=== PATIENT | female | born 1945 | race African-American/Black ===

== ENCOUNTER 2020-06-28 17:45 | Observation (INO) ==
[2020-06-28] MEDS ORDERED: ONDANSETRON 4 MG/2 ML VIAL IV STA (18:43)
[2020-06-28] MEDS ORDERED: methylPREDNISolone SOD SUC 125 MG/2 ML VIAL IV STA (18:43)
[2020-06-28] MEDS ORDERED: ALBUTEROL NEB SOLN 5 MG/ML 20 ML/BOTTLE CONT NEB SCH (19:00)
[2020-06-28 19:02] LABS: Alanine Aminotransferase 9 U/L (13-56); Albumin 3.6 G/DL (3.4-5.0); Alkaline Phosphatase 64 U/L (45-117); Aspartate Amino Transferase 15 U/L (0-37); Bilirubin,Total < 0.39 MG/DL (0.2-1.0); Blood Urea Nitrogen 16 MG/DL (7-18); Calcium 8.8 MG/DL (8.5-10.1); Carbon Dioxide 33 MMOL/L (21-32); Estimated Glom Filtration Rate 71 ML/MIN; Glucose 94 MG/DL (74-106); Osmolality,Calculated 277.5 MOS/KG (273-304); Potassium 3.6 MMOL/L (3.5-5.1); Sodium 139 MMOL/L (136-145); Total Protein 7.1 G/DL (6.4-8.2)
[2020-06-28 19:22] LABS: Bilirubin,Urine Negative (Negative); Blood, Urine Negative (Negative); Glucose,Urine (UA) Negative (Negative); Ketones,Urine Negative (Negative); Mucus,Urine Occasional /LPF (Occasional); Nitrite,Urine Negative (Negative); Protein,Urine 30 MG/DL; RBC,Urine 1 /HPF (0-4); Squamous Epithelial Cell,Urine Occasional /HPF (0-10); Urine Appearance CLEAR (Clear); Urine Color Yellow (Yellow); Urine Specific Gravity 1.012 (1.001-1.035); Urine Urobilinogen < 2.0 EU/DL (0.2-1.0); WBC,Urine 1 /HPF (0-6)
[2020-06-28 19:27] LABS: PT Patient Result 10.3 SECS (9.8-11.9)
[2020-06-28 19:28] LABS: Basophils % 0.3 % (0.0-0.8); Eosinophils # 0.1 10*3/uL (0.0-0.87); Eosinophils % 1.3 % (0.00-10.9); Hemoglobin 9.9 GM/DL (12.0-16.0); Immature Granulocytes % 0.5 %; Immature Granulocytes Absolute 0.04 #; Lymphocytes # 2.5 10*3/uL (1.4-4.0); Lymphocytes % 32.6 % (21.3-54.2); Mean Corpuscular HGB Conc 29.1 GM/DL (32-36); Mean Corpuscular Volume 84.6 FL (87-102); Mean Platelet Volume 9.6 FL (9.6-12.0); Monocytes % 6.6 % (1.7-12.7); NRBC # 0.02 10*3/uL; Neutrophils % 58.7 % (38.7-73.9); Platelet Count 352 T/CUMM (130-400); Red Blood Count 4.02 MC/CUMM (3.8-5.5); White Blood Count 7.7 T/CUMM (4-12)
[2020-06-28] MEDS ORDERED: hydrALAZINE 20 MG/1 ML VIAL ONE (19:37)
[2020-06-28] MEDS ORDERED: ENOXAPARIN 100 MG/ML SYRINGE SUBCUT STA (21:06)
[2020-06-28] MEDS ORDERED: ASPIRIN EC 325 MG TABLET PO STA (21:06)
[2020-06-28] MEDS ORDERED: NITROGLYCERIN 2% OINT 1 INCH/GM PACK TOP STA (21:06)
[2020-06-28] MEDS ORDERED: NON-FORMULARY MEDICATION (Albuterol Sulfate [Ventolin Hfa] 90 MCG/PUFF HFA aerosol inhaler INH PRN (21:54)
[2020-06-28] MEDS ORDERED: ALBUTEROL/IPRATROPIUM 3 ML NEB RESP TX PRN (22:54)
[2020-06-28] MEDS ORDERED: DEXTROSE 50% 25 GM/50 ML VIAL IV PRN (23:00)
[2020-06-28] MEDS ORDERED: DOCUSATE SODIUM 100 MG CAPSULE PO PRN (23:00)
[2020-06-28] MEDS ORDERED: ACETAMINOPHEN 325 MG TABLET PO PRN (23:00)
[2020-06-28] MEDS ORDERED: ONDANSETRON 4 MG/2 ML VIAL IV PRN (23:00)
[2020-06-28] MEDS ORDERED: hydrALAZINE 20 MG/1 ML VIAL IV PRN (23:00)
[2020-06-28] MEDS ORDERED: GLUCAGON 1 MG VIAL IM PRN (23:00)
[2020-06-28] MEDS ORDERED: ALBUTEROL 2.5 MG/3 ML NEB RESP TX PRN (23:05)
[2020-06-28] MEDS: carvediloL 6.25 MG TABLET PO SCH (23:20)
[2020-06-28] MEDS ORDERED: NICOTINE 21 MG/24 HR PATCH TRANSDERM PRN (23:41)
[2020-06-29] MEDS: ALBUTEROL/IPRATROPIUM 3 ML NEB RESP TX SCH ×3 (00:21→13:03)
[2020-06-29 03:15] LABS: % Iron Saturation 5.4 % (18-50); Ferritin 20.4 ng/ml (8-252)
[2020-06-29 03:15] LABS: Calcium 8.7 MG/DL (8.5-10.1); Osmolality,Calculated 285.4 MOS/KG (273-304); Potassium 4.1 MMOL/L (3.5-5.1)
[2020-06-29 03:17] LABS: Hematocrit 32.9 VOL% (35.7-47.0); Immature Granulocytes Absolute 0.09 #; Lymphocytes # 0.7 10*3/uL (1.4-4.0); Mean Corpuscular HGB Conc 29.2 GM/DL (32-36); Mean Corpuscular Volume 84.8 FL (87-102); Mean Platelet Volume 9.6 FL (9.6-12.0); Monocytes % 0.8 % (1.7-12.7); Neutrophils % 90.2 % (38.7-73.9); Platelet Count 330 T/CUMM (130-400); Red Blood Count 3.88 MC/CUMM (3.8-5.5); Red Cell Distribution Width 20.1 % (9.3-17.3); White Blood Count 8.7 T/CUMM (4-12)
[2020-06-29 03:19] LABS: Hemoglobin 9.6 GM/DL (12.0-16.0)
[2020-06-29 03:25] LABS: Folate 23.1 NG/ML (5.38-24.0); Vitamin B12 > 2000 PG/ML (211-911)
[2020-06-29 03:30] LABS: Risk Ratio 2.46; VLDL CHOLESTEROL 14.4 MG/DL
[2020-06-29 04:02] LABS: Sedimentation Rate-Westergren 47 MM/HR (0-30)
[2020-06-29] MEDS: carvediloL 6.25 MG TABLET PO SCH (08:58)
[2020-06-29] MEDS: GABAPENTIN 300 MG CAPSULE PO SCH ×2 (08:59→15:08)
[2020-06-29] MEDS ORDERED: LOSARTAN 50 MG TABLET PO SCH (09:00)
[2020-06-29] MEDS ORDERED: CLOPIDOGREL 75 MG TABLET PO SCH (09:00)
[2020-06-29] MEDS ORDERED: ENOXAPARIN 60 MG/0.6 ML SYRINGE SUBCUT SCH (09:00)
[2020-06-29] MEDS ORDERED: hydroCHLOROthiazide 12.5 MG CAPSULE PO SCH (09:00)
[2020-06-29] MEDS ORDERED: amLODIPine 10 MG TABLET PO SCH (09:00)
[2020-06-29] MEDS ORDERED: PANTOPRAZOLE 40 MG TABLET PO SCH (09:00)
[2020-06-29] MEDS ORDERED: FERROUS SULFATE 325 MG TABLET PO SCH (09:00)
[2020-06-29] MEDS ORDERED: NON-FORMULARY MEDICATION (Fluticasone-Umeclidin-Vilanter [Trelegy Ellipta] 100-62.5-25 mcg INH SCH (09:00)
[2020-06-29 09:21] LABS: Hemoglobin A1 (Alkaline) 97.2 % (96.5-98.5); Hemoglobin A2 (Alkaline) 2.8 % (1.5-3.5)
[2020-06-29] MEDS ORDERED: LACTATED RINGERS 1,000 ML IV SCH (10:00)
[2020-06-29] MEDS ORDERED: ENOXAPARIN 40 MG/0.4 ML SYRINGE SUBCUT SCH (10:30)
[2020-06-29 10:49] LABS: Barbiturates Screen,Urine Negative (Negative); Benzodiazepines Screen,Urine Negative (Negative); Cannabinoid Screen,Urine Negative (Negative); Opiate Screen,Urine Negative (Negative); Phencyclidine Screen,Urine Negative (Negative)
[2020-06-29 11:51] VITALS: BP 160/70
[2020-06-29] MEDS ORDERED: PRAVASTATIN 20 MG TABLET PO SCH (21:00)
[2020-06-30] MEDS ORDERED: methylPREDNISolone SOD SUC 40 MG/1 ML VIAL IV SCH (09:00)
[2020-06-30] MEDS ORDERED: ASPIRIN EC 81 MG TABLET PO SCH (09:00)
== END 2020-06-29 15:30 | disposition home or self-care (01) ==
LOC: N.EDINP 17:45 → N.ED 17:45 → N.EDINP 23:15 → N.TELES 23:20
PROVIDERS: ADMIT Internal Medicine; ATTEND Internal Medicine

== ENCOUNTER 2021-02-15 10:19 | Inpatient (IN) ==
[2021-02-15 11:27] LABS: Basophils % 0.2 % (0.0-0.8); Eosinophils # 0.1 10*3/uL (0.0-0.87); Eosinophils % 1.7 % (0.00-10.9); Hematocrit 21.9 VOL% (35.7-47.0); Immature Granulocytes % 0.2 %; Immature Granulocytes Absolute 0.01 #; Lymphocytes # 1.4 10*3/uL (1.4-4.0); Lymphocytes % 33.6 % (21.3-54.2); Mean Corpuscular HGB Conc 24.2 GM/DL (32-36); Mean Platelet Volume 9.1 FL (9.6-12.0); Monocytes % 9.2 % (1.7-12.7); Neutrophils % 55.1 % (38.7-73.9); Platelet Count 371 T/CUMM (130-400); Red Blood Count 3.22 MC/CUMM (3.8-5.5); Red Cell Distribution Width 19.9 % (9.3-17.3)
[2021-02-15 11:34] LABS: Hemoglobin 5.3 GM/DL (12.0-16.0)
[2021-02-15 11:36] LABS: INR 1.1; PT Patient Result 11.8 SECS (10.5-12.0); Partial Thromboplastin Time 23.6 SECS (23.8-32.1)
[2021-02-15 11:46] LABS: Albumin 3.2 G/DL (3.4-5.0); Bilirubin,Total 0.4 MG/DL (0.20-1.00); Calcium 8.7 MG/DL (8.5-10.1); Osmolality,Calculated 281.1 MOS/KG (273-304); Total Protein 7.5 G/DL (6.4-8.2)
[2021-02-15] MEDS ORDERED: PANTOPRAZOLE 40 MG VIAL IV STA (11:48)
[2021-02-15 11:49] LABS: Band Neutrophils 2 % (0-10); Eosinophils 1 % (0-10); Lymphocytes 30 % (20-55); Platelet Estimate Normal; Segmented Neutrophils 61 % (50-85); Total Cells Counted 100
[2021-02-15 11:50] LABS: Anisocytosis 1+; Hypochromasia 2+; Ovalocytes Few
[2021-02-15 11:51] LABS: % Iron Saturation 3.7 % (18-50); Ferritin 4.7 ng/mL (8-252)
[2021-02-15 11:55] LABS: Vitamin B12 > 2000 PG/ML (211-911)
[2021-02-15] MEDS ORDERED: GLUCAGON 1 MG VIAL IM PRN (13:02)
[2021-02-15] MEDS ORDERED: DEXTROSE 50% 25 GM/50 ML SYRINGE IV PRN (13:02)
[2021-02-15] MEDS ORDERED: ACETAMINOPHEN 325 MG TABLET PO PRN (13:02)
[2021-02-15] MEDS ORDERED: ONDANSETRON 4 MG/2 ML VIAL IV PRN (13:02)
[2021-02-15] MEDS ORDERED: hydrALAZINE 20 MG/1 ML VIAL IV PRN (13:02)
[2021-02-15] MEDS ORDERED: SODIUM CHLORIDE 0.9% 1,000 ML IV PRN (13:07)
[2021-02-15] MEDS ORDERED: IRON DEXTRAN 25 MG in SYRINGE 1 EACH IV ONE (13:08)
[2021-02-15] MEDS ORDERED: AZITHROMYCIN 250 MG TABLET PO ONE (13:20)
[2021-02-15] MEDS: GABAPENTIN 100 MG CAPSULE PO SCH ×2 (14:15→22:46)
[2021-02-15] MEDS ORDERED: FERRIC GLUCONATE COMPLEX 125 MG in SODIUM CHLORIDE 0.9% 100 ML IV SCH ×2 (17:00→22:00)
[2021-02-15] MEDS: carvediloL 6.25 MG TABLET PO SCH (17:28)
[2021-02-15] MEDS: ALBUTEROL/IPRATROPIUM 3 ML NEB RESP TX SCH (21:15)
[2021-02-15] MEDS: PANTOPRAZOLE 40 MG VIAL IV SCH (22:47)
[2021-02-15] MEDS: SIMVASTATIN 40 MG TABLET PO SCH (22:47)
[2021-02-15 23:45] LABS: Hematocrit 30.9 VOL% (35.7-47.0)
[2021-02-15 23:49] LABS: Hemoglobin 8.5 GM/DL (12.0-16.0)
[2021-02-16] MEDS: ALBUTEROL/IPRATROPIUM 3 ML NEB RESP TX SCH ×5 (00:35→20:00)
[2021-02-16] MEDS ORDERED: FUROSEMIDE 40 MG/4 ML VIAL IV ONE (04:21)
[2021-02-16] MEDS ORDERED: ALBUTEROL 1.25 MG/3 ML NEB RESP TX PRN (04:21)
[2021-02-16] MEDS: GABAPENTIN 100 MG CAPSULE PO SCH ×3 (05:30→20:30)
[2021-02-16 05:34] LABS: Calcium 8.6 MG/DL (8.5-10.1); Osmolality,Calculated 279.3 MOS/KG (273-304); Potassium 4.2 MMOL/L (3.5-5.1)
[2021-02-16 06:10] LABS: Basophils % 0.3 % (0.0-0.8); Eosinophils # 0.1 10*3/uL (0.0-0.87); Eosinophils % 1.4 % (0.00-10.9); Hematocrit 35.2 VOL% (35.7-47.0); Immature Granulocytes % 1.6 %; Lymphocytes # 1.2 10*3/uL (1.4-4.0); Lymphocytes % 17.9 % (21.3-54.2); Mean Corpuscular HGB Conc 27.8 GM/DL (32-36); Mean Corpuscular Volume 76.5 FL (87-102); Mean Platelet Volume 9.5 FL (9.6-12.0); Monocytes % 7.6 % (1.7-12.7); NRBC # 0.04 10*3/uL; Neutrophils % 71.2 % (38.7-73.9); Platelet Count 292 T/CUMM (130-400)
[2021-02-16 06:14] LABS: Hemoglobin 9.8 GM/DL (12.0-16.0); White Blood Count 6.4 T/CUMM (4-12)
[2021-02-16] MEDS ORDERED: LIDOCAINE 2% 5 ML VIAL ONE ×2 (06:55→08:20)
[2021-02-16] MEDS ORDERED: propofoL 200 MG/20 ML VIAL IV ONE ×2 (06:55→08:20)
[2021-02-16] MEDS ORDERED: LACTATED RINGERS 1,000 ML IV SCH (07:00)
[2021-02-16] MEDS ORDERED: KETAMINE 500 MG/10 ML VIAL ONE (07:16)
[2021-02-16] MEDS ORDERED: GLYCOPYRROLATE 0.4 MG/2 ML VIAL ONE (07:20)
[2021-02-16] MEDS: PANTOPRAZOLE 40 MG VIAL IV SCH ×2 (11:15→20:28)
[2021-02-16] MEDS: amLODIPine 10 MG TABLET PO SCH (11:20)
[2021-02-16] MEDS: carvediloL 6.25 MG TABLET PO SCH ×2 (11:20→16:22)
[2021-02-16 11:47] LABS: Hematocrit 34.7 VOL% (35.7-47.0)
[2021-02-16 11:50] LABS: Hemoglobin 9.6 GM/DL (12.0-16.0)
[2021-02-16] MEDS: FERRIC GLUCONATE COMPLEX 125 MG in SODIUM CHLORIDE 0.9% 100 ML IV SCH (12:42)
[2021-02-16] MEDS: AZITHROMYCIN 250 MG TABLET PO SCH (13:14)
[2021-02-16] MEDS: NICOTINE 21 MG/24 HR PATCH TRANSDERM SCH (16:23)
[2021-02-16] MEDS: SIMVASTATIN 40 MG TABLET PO SCH (20:28)
[2021-02-17] MEDS: ALBUTEROL/IPRATROPIUM 3 ML NEB RESP TX SCH ×5 (01:36→19:35)
[2021-02-17] MEDS: GABAPENTIN 100 MG CAPSULE PO SCH ×3 (05:15→21:18)
[2021-02-17 06:06] LABS: Calcium 8.7 MG/DL (8.5-10.1); Osmolality,Calculated 275.5 MOS/KG (273-304); Potassium 3.2 MMOL/L (3.5-5.1)
[2021-02-17 06:39] LABS: Basophils % 0.3 % (0.0-0.8); Eosinophils # 0.2 10*3/uL (0.0-0.87); Hematocrit 31.2 VOL% (35.7-47.0); Hemoglobin 8.7 GM/DL (12.0-16.0); Immature Granulocytes % 1.3 %; Immature Granulocytes Absolute 0.08 #; Lymphocytes # 1.4 10*3/uL (1.4-4.0); Lymphocytes % 22.5 % (21.3-54.2); Mean Corpuscular HGB Conc 27.9 GM/DL (32-36); Mean Corpuscular Volume 75.7 FL (87-102); Mean Platelet Volume 9.3 FL (9.6-12.0); Monocytes % 8.7 % (1.7-12.7); NRBC # 0.09 10*3/uL; Neutrophils % 64.2 % (38.7-73.9); Platelet Count 263 T/CUMM (130-400); Red Blood Count 4.12 MC/CUMM (3.8-5.5); Red Cell Distribution Width 25.4 % (9.3-17.3); White Blood Count 6.1 T/CUMM (4-12)
[2021-02-17 06:51] LABS: Hypochromasia 2+; Microcytosis 1+
[2021-02-17 06:52] LABS: Anisocytosis 1+; Platelet Estimate Normal; Polychromasia Slight
[2021-02-17] MEDS ORDERED: SODIUM CHLOR 0.9% KCL 40 MEQ 40 MEQ/1,000 ML BAG IV SCH (09:00)
[2021-02-17] MEDS: AZITHROMYCIN 250 MG TABLET PO SCH (10:17)
[2021-02-17] MEDS: amLODIPine 10 MG TABLET PO SCH (10:17)
[2021-02-17] MEDS: carvediloL 6.25 MG TABLET PO SCH ×2 (10:17→17:49)
[2021-02-17] MEDS: PANTOPRAZOLE 40 MG VIAL IV SCH ×2 (10:18→21:18)
[2021-02-17] MEDS: NICOTINE 21 MG/24 HR PATCH TRANSDERM SCH (10:22)
[2021-02-17] MEDS: FERRIC GLUCONATE COMPLEX 125 MG in SODIUM CHLORIDE 0.9% 100 ML IV SCH (10:29)
[2021-02-17] MEDS ORDERED: POTASSIUM BICARB EFFERVESCENT 20 MEQ TAB.EFF PER TUBE PRN (15:09)
[2021-02-17] MEDS: POTASSIUM CHLORIDE 20 MEQ PACK PO SCH ×2 (15:22→21:18)
[2021-02-17] MEDS: FUROSEMIDE 40 MG/4 ML VIAL IV SCH (15:23)
[2021-02-17] MEDS: SIMVASTATIN 40 MG TABLET PO SCH (21:18)
[2021-02-18] MEDS: ALBUTEROL/IPRATROPIUM 3 ML NEB RESP TX SCH ×4 (00:15→19:14)
[2021-02-18] MEDS: GABAPENTIN 100 MG CAPSULE PO SCH ×3 (05:12→20:44)
[2021-02-18 05:41] LABS: Calcium 8.7 MG/DL (8.5-10.1); Osmolality,Calculated 277.4 MOS/KG (273-304); Potassium 3.5 MMOL/L (3.5-5.1)
[2021-02-18 05:47] LABS: Basophils % 0.4 % (0.0-0.8); Eosinophils # 0.2 10*3/uL (0.0-0.87); Eosinophils % 3.3 % (0.00-10.9); Immature Granulocytes % 0.7 %; Immature Granulocytes Absolute 0.05 #; Lymphocytes # 1.5 10*3/uL (1.4-4.0); Lymphocytes % 20.8 % (21.3-54.2); Mean Corpuscular HGB Conc 27.8 GM/DL (32-36); Mean Corpuscular Volume 75.3 FL (87-102); Mean Platelet Volume 9.7 FL (9.6-12.0); Monocytes % 9.6 % (1.7-12.7); NRBC # 0.07 10*3/uL; Neutrophils % 65.2 % (38.7-73.9); Platelet Count 267 T/CUMM (130-400); Red Blood Count 4.25 MC/CUMM (3.8-5.5); Red Cell Distribution Width 26.2 % (9.3-17.3); White Blood Count 7.2 T/CUMM (4-12)
[2021-02-18 05:54] LABS: Hemoglobin 8.9 GM/DL (12.0-16.0)
[2021-02-18] MEDS: AZITHROMYCIN 250 MG TABLET PO SCH (09:17)
[2021-02-18] MEDS: POTASSIUM CHLORIDE 20 MEQ PACK PO SCH ×2 (09:17→20:59)
[2021-02-18] MEDS: NICOTINE 21 MG/24 HR PATCH TRANSDERM SCH (09:17)
[2021-02-18] MEDS: PANTOPRAZOLE 40 MG VIAL IV SCH ×2 (09:18→20:44)
[2021-02-18] MEDS: FUROSEMIDE 40 MG/4 ML VIAL IV SCH ×2 (09:18→16:41)
[2021-02-18] MEDS: BISACODYL 5 MG TABLET PO SCH ×2 (09:19→16:43)
[2021-02-18] MEDS: amLODIPine 10 MG TABLET PO SCH (09:20)
[2021-02-18] MEDS: carvediloL 6.25 MG TABLET PO SCH ×2 (09:22→16:43)
[2021-02-18] MEDS: FERRIC GLUCONATE COMPLEX 125 MG in SODIUM CHLORIDE 0.9% 100 ML IV SCH (09:31)
[2021-02-18] MEDS ORDERED: MAGNESIUM SULF RIDER 2 GM/50 ML PREMIX IV PRN (10:21)
[2021-02-18] MEDS ORDERED: MAGNESIUM SULF RIDER 4 GM/100 ML PREMIX IV PRN (10:21)
[2021-02-18] MEDS ORDERED: POLYETHYLENE GLYCOL POWDER 255 GM BOTTLE PO ONE (18:00)
[2021-02-18] MEDS: SIMVASTATIN 40 MG TABLET PO SCH (20:44)
[2021-02-18] MEDS ORDERED: MAGNESIUM CITRATE 300 ML BOTTLE PO ONE (21:00)
[2021-02-19] MEDS: GABAPENTIN 100 MG CAPSULE PO SCH (05:03)
[2021-02-19 05:59] LABS: Calcium 9.1 MG/DL (8.5-10.1); Potassium 3.1 MMOL/L (3.5-5.1)
[2021-02-19 06:46] LABS: Basophils % 0.6 % (0.0-0.8); Eosinophils # 0.3 10*3/uL (0.0-0.87); Hematocrit 33.6 VOL% (35.7-47.0); Hemoglobin 9.6 GM/DL (12.0-16.0); Immature Granulocytes % 0.5 %; Immature Granulocytes Absolute 0.03 #; Lymphocytes # 1.6 10*3/uL (1.4-4.0); Lymphocytes % 23.6 % (21.3-54.2); Mean Corpuscular HGB Conc 28.6 GM/DL (32-36); Mean Corpuscular Volume 75.5 FL (87-102); Mean Platelet Volume 9.6 FL (9.6-12.0); Monocytes % 9.9 % (1.7-12.7); NRBC # 0.02 10*3/uL; Neutrophils % 61.4 % (38.7-73.9); Platelet Count 285 T/CUMM (130-400); Red Blood Count 4.45 MC/CUMM (3.8-5.5); Red Cell Distribution Width 26.9 % (9.3-17.3); White Blood Count 6.6 T/CUMM (4-12)
[2021-02-19 07:09] LABS: Hypochromasia 2+; Polychromasia Slight
[2021-02-19 07:10] LABS: Anisocytosis 1+; Microcytosis 1+; Ovalocytes Slight; Platelet Estimate Normal
[2021-02-19] MEDS: BISACODYL 5 MG TABLET PO SCH (07:11)
[2021-02-19] MEDS: ALBUTEROL/IPRATROPIUM 3 ML NEB RESP TX SCH ×3 (07:40→08:46)
[2021-02-19] MEDS ORDERED: ALBUTEROL INHALER 18 GM INH ONE (07:42)
[2021-02-19] MEDS ORDERED: propofoL 200 MG/20 ML VIAL IV ONE (08:10)
[2021-02-19] MEDS ORDERED: LIDOCAINE 2% 5 ML VIAL ONE (08:10)
[2021-02-19] MEDS ORDERED: LACTATED RINGERS 1,000 ML IV SCH (08:30)
[2021-02-19] MEDS: amLODIPine 10 MG TABLET PO SCH (09:18)
[2021-02-19] MEDS: POTASSIUM CHLORIDE 20 MEQ PACK PO SCH (09:18)
[2021-02-19] MEDS: NICOTINE 21 MG/24 HR PATCH TRANSDERM SCH (09:18)
[2021-02-19] MEDS: FUROSEMIDE 40 MG/4 ML VIAL IV SCH (09:19)
[2021-02-19] MEDS: AZITHROMYCIN 250 MG TABLET PO SCH (09:19)
[2021-02-19] MEDS: carvediloL 6.25 MG TABLET PO SCH (09:19)
[2021-02-19] MEDS ORDERED: POTASSIUM CHLORIDE 20 MEQ TABLET PO ONE (10:51)
[2021-02-19] MEDS: FERRIC GLUCONATE COMPLEX 125 MG in SODIUM CHLORIDE 0.9% 100 ML IV SCH (10:53)
[2021-02-19 12:27] VITALS: BP 141/50
[2021-02-19] MEDS ORDERED: PANTOPRAZOLE 40 MG TABLET PO SCH (19:00)
== END 2021-02-19 13:40 | disposition home or self-care (01) | DRG 378 ==
LOC: N.ED 10:19 → MERGE 10:19 → N.EDINP 13:02 → SUATTDRO 13:02 → N.5E 14:59
PROVIDERS: ADMIT Internal Medicine; ATTEND Internal Medicine

== ENCOUNTER 2021-10-18 09:21 | Inpatient (IN) ==
[~2021-10-18 09:21] MED LIST: HEPARIN/NACL 0.9% 2 UNITS/ML 3,000 UNIT/1,500 ML BAG IV ONE
== END 2021-10-18 15:00 | disposition home or self-care (01) | DRG 192 ==
LOC: N.CC 09:21
PROVIDERS: ADMIT Internal Medicine Cardiovascular Disease; ATTEND Internal Medicine Cardiovascular Disease

== ENCOUNTER 2021-10-18 09:55 | Inpatient (IN) ==
[2021-10-18] MEDS ORDERED: ALBUTEROL/IPRATROPIUM 3 ML NEB RESP TX STA (10:26)
[2021-10-18] MEDS ORDERED: methylPREDNISolone SOD SUC 125 MG/2 ML VIAL IV STA (10:26)
[2021-10-18 11:14] LABS: Basophils % 0.5 % (0.0-0.8); Eosinophils # 0.1 10*3/uL (0.0-0.87); Eosinophils % 1.5 % (0.00-10.9); Hematocrit 42.2 VOL% (35.7-47.0); Hemoglobin 12.8 GM/DL (12.0-16.0); Immature Granulocytes % 1.1 %; Immature Granulocytes Absolute 0.07 #; Lymphocytes # 1.8 10*3/uL (1.4-4.0); Lymphocytes % 27.1 % (21.3-54.2); Mean Corpuscular HGB Conc 30.3 GM/DL (32-36); Mean Corpuscular Volume 81.3 FL (87-102); Mean Platelet Volume 10.5 FL (9.6-12.0); Monocytes # 0.4 10*3/uL (0.11-0.8); Monocytes % 5.7 % (1.7-12.7); Neutrophils % 64.1 % (38.7-73.9); Platelet Count 282 T/CUMM (130-400); Red Blood Count 5.19 MC/CUMM (3.8-5.5); Red Cell Distribution Width 18.6 % (9.3-17.3); White Blood Count 6.5 T/CUMM (4-12)
[2021-10-18] MEDS ORDERED: SPIRONOLACTONE 25 MG TABLET PO SCH (12:00)
[2021-10-18] MEDS ORDERED: minoxidiL 2.5 MG TABLET PO SCH (12:00)
[2021-10-18] MEDS ORDERED: NON-FORMULARY MEDICATION (Nebivolol [Bystolic] 20 mg Tablet) PO SCH (12:00)
[2021-10-18] MEDS: carvediloL 6.25 MG TABLET PO SCH ×2 (12:17→21:14)
[2021-10-18] MEDS: amLODIPine 10 MG TABLET PO SCH (12:18)
[2021-10-18 12:23] LABS: Bilirubin,Total 0.6 MG/DL (0.20-1.00); Calcium 9.9 MG/DL (8.5-10.1)
[2021-10-18] MEDS ORDERED: NITROGLYCERIN SL 0.4 MG TABLET SL PRN (12:28)
[2021-10-18] MEDS ORDERED: hydrALAZINE 20 MG/1 ML VIAL IV PRN (12:28)
[2021-10-18] MEDS ORDERED: LOSARTAN 50 MG TABLET PO SCH (13:00)
[2021-10-18] MEDS ORDERED: hydroCHLOROthiazide 25 MG TABLET PO SCH (13:00)
[2021-10-18] MEDS ORDERED: GLUCAGON 1 MG VIAL IM PRN (13:33)
[2021-10-18] MEDS ORDERED: ONDANSETRON 4 MG/2 ML VIAL IV PRN (13:33)
[2021-10-18] MEDS ORDERED: DEXTROSE 10% 250 ML BAG IV PRN (13:46)
[2021-10-18] MEDS ORDERED: ALBUTEROL 2.5 MG/3 ML NEB RESP TX PRN (13:50)
[2021-10-18] MEDS ORDERED: tiZANidine 4 MG TABLET PO PRN (13:52)
[2021-10-18] MEDS ORDERED: VALSARTAN 160 MG TABLET PO SCH (14:30)
[2021-10-18] MEDS: PANTOPRAZOLE 40 MG TABLET PO SCH (18:12)
[2021-10-18] MEDS: GABAPENTIN 300 MG CAPSULE PO SCH ×2 (18:12→21:15)
[2021-10-18] MEDS: methylPREDNISolone SOD SUC 40 MG/1 ML VIAL IV SCH ×2 (18:13→23:41)
[2021-10-18] MEDS: AZITHROMYCIN INJ 500 MG in SODIUM CHLORIDE 0.9% 250 ML IV SCH (18:14)
[2021-10-18] MEDS: ALBUTEROL/IPRATROPIUM 3 ML NEB RESP TX SCH ×2 (19:34→23:39)
[2021-10-18] MEDS ORDERED: SIMVASTATIN 40 MG TABLET PO SCH (21:00)
[2021-10-18] MEDS ORDERED: ENOXAPARIN 40 MG/0.4 ML SYRINGE SUBCUT SCH (21:00)
[2021-10-18] MEDS: SIMVASTATIN 40 MG TABLET PO SCH (21:14)
[2021-10-19 04:12] LABS: Hematocrit 41.6 VOL% (35.7-47.0); Hemoglobin 12.6 GM/DL (12.0-16.0); Immature Granulocytes % 0.5 %; Immature Granulocytes Absolute 0.02 #; Lymphocytes # 0.5 10*3/uL (1.4-4.0); Lymphocytes % 12.5 % (21.3-54.2); Mean Corpuscular HGB Conc 30.3 GM/DL (32-36); Mean Corpuscular Volume 81.4 FL (87-102); Mean Platelet Volume 10.9 FL (9.6-12.0); Monocytes % 0.5 % (1.7-12.7); Neutrophils % 86.5 % (38.7-73.9); Platelet Count 299 T/CUMM (130-400); Red Blood Count 5.11 MC/CUMM (3.8-5.5); Red Cell Distribution Width 18.3 % (9.3-17.3); White Blood Count 4.2 T/CUMM (4-12)
[2021-10-19 04:36] LABS: Calcium 9.2 MG/DL (8.5-10.1); Potassium 4.1 MMOL/L (3.5-5.1)
[2021-10-19 04:39] LABS: Risk Ratio 2.69; VLDL Cholesterol 15.2 MG/DL
[2021-10-19] MEDS: methylPREDNISolone SOD SUC 40 MG/1 ML VIAL IV SCH ×3 (05:55→21:46)
[2021-10-19] MEDS: ALBUTEROL/IPRATROPIUM 3 ML NEB RESP TX SCH ×3 (07:05→19:47)
[2021-10-19 08:07] LABS: Calcium 9.4 MG/DL (8.5-10.1); Osmolality,Calculated 286.1 MOS/KG (273-304); Potassium 4.6 MMOL/L (3.5-5.1)
[2021-10-19] MEDS ORDERED: VALSARTAN 160 MG TABLET PO SCH (09:00)
[2021-10-19] MEDS ORDERED: ENOXAPARIN 30 MG/0.3 ML SYRINGE SUBCUT SCH (09:00)
[2021-10-19] MEDS: SODIUM CHLORIDE 0.9% 1,000 ML IV SCH ×3 (09:55→23:37)
[2021-10-19] MEDS: CLOPIDOGREL 75 MG TABLET PO SCH (09:58)
[2021-10-19] MEDS: GABAPENTIN 300 MG CAPSULE PO SCH ×3 (09:58→20:41)
[2021-10-19] MEDS: ASPIRIN EC 81 MG TABLET PO SCH (09:58)
[2021-10-19] MEDS: carvediloL 6.25 MG TABLET PO SCH ×2 (09:59→20:41)
[2021-10-19] MEDS: amLODIPine 10 MG TABLET PO SCH (09:59)
[2021-10-19] MEDS: NON-FORMULARY MEDICATION (Fluticasone-Umeclidin-Vilanter [Trelegy Ellipta] 100-62.5-25 mcg INH SCH (10:00)
[2021-10-19] MEDS: INSULIN LISPRO 100 UNIT/ML SUBCUT SCH ×3 (12:27→20:42)
[2021-10-19] MEDS: NICOTINE 21 MG/24 HR PATCH TRANSDERM SCH (12:27)
[2021-10-19] MEDS: AZITHROMYCIN INJ 500 MG in SODIUM CHLORIDE 0.9% 250 ML IV SCH (14:30)
[2021-10-19] MEDS: PANTOPRAZOLE 40 MG TABLET PO SCH (17:48)
[2021-10-19] MEDS: HEPARIN 5,000 UNIT/1 ML VIAL SUBCUT SCH (20:41)
[2021-10-19] MEDS: SIMVASTATIN 40 MG TABLET PO SCH (20:41)
[2021-10-20] MEDS: ALBUTEROL/IPRATROPIUM 3 ML NEB RESP TX SCH ×4 (01:15→19:36)
[2021-10-20 03:59] LABS: Basophils % 0.1 % (0.0-0.8); Hematocrit 36.5 VOL% (35.7-47.0); Immature Granulocytes % 0.8 %; Immature Granulocytes Absolute 0.13 #; Lymphocytes # 0.5 10*3/uL (1.4-4.0); Lymphocytes % 3.1 % (21.3-54.2); Mean Corpuscular HGB Conc 30.1 GM/DL (32-36); Mean Corpuscular Volume 82.2 FL (87-102); Mean Platelet Volume 10.6 FL (9.6-12.0); Monocytes # 0.2 10*3/uL (0.11-0.8); Monocytes % 0.9 % (1.7-12.7); Neutrophils % 95.1 % (38.7-73.9); Platelet Count 302 T/CUMM (130-400); Red Blood Count 4.44 MC/CUMM (3.8-5.5); Red Cell Distribution Width 18.6 % (9.3-17.3); White Blood Count 16.3 T/CUMM (4-12)
[2021-10-20 04:15] LABS: Calcium 8.3 MG/DL (8.5-10.1); Osmolality,Calculated 297.4 MOS/KG (273-304); Potassium 4.3 MMOL/L (3.5-5.1)
[2021-10-20 04:19] LABS: Band Neutrophils 2 % (0-10); Hypochromia 1+; Lymphocytes 3 % (20-55); Total Cells Counted 100
[2021-10-20 04:20] LABS: Microcytosis 1+; Ovalocytes Slight; Platelet Estimate Normal
[2021-10-20] MEDS: SODIUM CHLORIDE 0.9% 1,000 ML IV SCH ×2 (04:52→09:52)
[2021-10-20] MEDS: methylPREDNISolone SOD SUC 40 MG/1 ML VIAL IV SCH ×2 (05:37→17:39)
[2021-10-20] MEDS: INSULIN LISPRO 100 UNIT/ML SUBCUT SCH ×4 (08:25→21:18)
[2021-10-20] MEDS: CLOPIDOGREL 75 MG TABLET PO SCH (09:34)
[2021-10-20] MEDS: GABAPENTIN 300 MG CAPSULE PO SCH ×3 (09:34→20:41)
[2021-10-20] MEDS: NICOTINE 21 MG/24 HR PATCH TRANSDERM SCH (09:35)
[2021-10-20] MEDS: ASPIRIN EC 81 MG TABLET PO SCH (09:35)
[2021-10-20] MEDS: HEPARIN 5,000 UNIT/1 ML VIAL SUBCUT SCH ×2 (09:35→20:43)
[2021-10-20] MEDS: amLODIPine 10 MG TABLET PO SCH (09:35)
[2021-10-20] MEDS: carvediloL 6.25 MG TABLET PO SCH ×2 (09:37→20:41)
[2021-10-20] MEDS: NON-FORMULARY MEDICATION (Fluticasone-Umeclidin-Vilanter [Trelegy Ellipta] 100-62.5-25 mcg INH SCH (09:38)
[2021-10-20] MEDS ORDERED: NICOTINE 21 MG/24 HR PATCH TRANSDERM SCH (11:00)
[2021-10-20] MEDS: AZITHROMYCIN INJ 500 MG in SODIUM CHLORIDE 0.9% 250 ML IV SCH (15:57)
[2021-10-20] MEDS: PANTOPRAZOLE 40 MG TABLET PO SCH (17:39)
[2021-10-20] MEDS: SIMVASTATIN 40 MG TABLET PO SCH (20:41)
[2021-10-21] MEDS: ALBUTEROL/IPRATROPIUM 3 ML NEB RESP TX SCH ×3 (00:24→13:20)
[2021-10-21] MEDS: methylPREDNISolone SOD SUC 40 MG/1 ML VIAL IV SCH (05:16)
[2021-10-21 05:34] LABS: Basophils % 0.1 % (0.0-0.8); Hematocrit 36.5 VOL% (35.7-47.0); Hemoglobin 10.9 GM/DL (12.0-16.0); Immature Granulocytes % 1.4 %; Lymphocytes # 0.5 10*3/uL (1.4-4.0); Lymphocytes % 3.9 % (21.3-54.2); Mean Corpuscular HGB Conc 29.9 GM/DL (32-36); Mean Corpuscular Volume 83.5 FL (87-102); Mean Platelet Volume 10.9 FL (9.6-12.0); Monocytes # 0.2 10*3/uL (0.11-0.8); Monocytes % 1.6 % (1.7-12.7); Platelet Count 304 T/CUMM (130-400); Red Blood Count 4.37 MC/CUMM (3.8-5.5); Red Cell Distribution Width 19.1 % (9.3-17.3)
[2021-10-21 05:43] LABS: Calcium 8.2 MG/DL (8.5-10.1); Osmolality,Calculated 305.1 MOS/KG (273-304); Potassium 4.7 MMOL/L (3.5-5.1)
[2021-10-21 06:08] LABS: Lymphocytes 4 % (20-55); Platelet Estimate Normal; Total Cells Counted 100
[2021-10-21] MEDS: INSULIN LISPRO 100 UNIT/ML SUBCUT SCH ×2 (08:20→11:50)
[2021-10-21] MEDS: GABAPENTIN 300 MG CAPSULE PO SCH (08:59)
[2021-10-21] MEDS: amLODIPine 10 MG TABLET PO SCH (08:59)
[2021-10-21] MEDS: CLOPIDOGREL 75 MG TABLET PO SCH (08:59)
[2021-10-21] MEDS: ASPIRIN EC 81 MG TABLET PO SCH (09:00)
[2021-10-21] MEDS: NICOTINE 21 MG/24 HR PATCH TRANSDERM SCH (09:00)
[2021-10-21] MEDS: carvediloL 6.25 MG TABLET PO SCH (09:00)
[2021-10-21] MEDS: HEPARIN 5,000 UNIT/1 ML VIAL SUBCUT SCH (09:06)
[2021-10-21] MEDS: NON-FORMULARY MEDICATION (Fluticasone-Umeclidin-Vilanter [Trelegy Ellipta] 100-62.5-25 mcg INH SCH (09:08)
[2021-10-21 12:54] VITALS: BP 116/63
== END 2021-10-21 13:48 | disposition home health service (06) | DRG 191 ==
LOC: N.ED 09:55 → N.EDINP 13:33 → SUATTDRO 13:33 → N.TELEN 14:04
PROVIDERS: ADMIT Internal Medicine; ATTEND Internal Medicine

== ENCOUNTER 2021-10-25 10:55 | Inpatient (IN) ==
[2021-10-25] MEDS ORDERED: LABETALOL 20 MG/4 ML SYRINGE IV STA (12:00)
[2021-10-25 12:22] LABS: Basophils % 0.2 % (0.0-0.8); Eosinophils % 0.8 % (0.00-10.9); Hematocrit 44.6 VOL% (35.7-47.0); Immature Granulocytes % 1.5 %; Immature Granulocytes Absolute 0.08 #; Lymphocytes # 1.7 10*3/uL (1.4-4.0); Lymphocytes % 31.4 % (21.3-54.2); Mean Corpuscular HGB Conc 31.4 GM/DL (32-36); Mean Corpuscular Volume 79.1 FL (87-102); Monocytes # 0.5 10*3/uL (0.11-0.8); Monocytes % 9.1 % (1.7-12.7); Platelet Count 370 T/CUMM (130-400); Red Blood Count 5.64 MC/CUMM (3.8-5.5); Red Cell Distribution Width 19.9 % (9.3-17.3); White Blood Count 5.3 T/CUMM (4-12)
[2021-10-25 12:43] LABS: INR 1.1; PT Patient Result 11.8 SECS (10.1-12.1)
[2021-10-25 12:49] LABS: Albumin 3.6 G/DL (3.4-5.0); Bilirubin,Total 0.6 MG/DL (0.20-1.00); Calcium 9.4 MG/DL (8.5-10.1); Osmolality,Calculated 280.7 MOS/KG (273-304); Potassium 4.4 MMOL/L (3.5-5.1); Total Protein 7.5 G/DL (6.4-8.2)
[2021-10-25 12:54] LABS: Amorphous Crystals,Urine Few /HPF (Few); Bacteria,Urine Occasional /HPF (Few); Hyaline Casts,Urine 3 /LPF (0-3); Mucus,Urine Occasional /LPF (Occasional); Squamous Epithelial Cell,Urine Few /HPF (0-10)
[2021-10-25 12:57] LABS: Bilirubin,Urine Small mg/dL (Negative); Blood, Urine Negative (Negative); Glucose,Urine (UA) Negative (Negative); Ketones,Urine Trace mg/dL (Negative); Nitrite,Urine Negative (Negative); Protein,Urine 100 mg/dL (Negative); Urine Appearance Clear (Clear); Urine Color Yellow (Yellow); Urine Specific Gravity 1.025 (1.001-1.035)
[2021-10-25] MEDS ORDERED: ASPIRIN 325 MG TABLET PO STA (13:15)
[2021-10-25] MEDS ORDERED: FUROSEMIDE 40 MG/4 ML VIAL IV STA (13:15)
[2021-10-25] MEDS ORDERED: ONDANSETRON 4 MG/2 ML VIAL IV PRN (16:24)
[2021-10-25] MEDS ORDERED: BISACODYL 5 MG TABLET PO PRN (16:24)
[2021-10-25] MEDS ORDERED: hydrALAZINE 20 MG/1 ML VIAL IV PRN (16:41)
[2021-10-25] MEDS ORDERED: ASPIRIN 325 MG TABLET PO SCH (16:57)
[2021-10-25] MEDS: ALBUTEROL/IPRATROPIUM 3 ML NEB RESP TX SCH (18:18)
[2021-10-25] MEDS ORDERED: ALUM/MAG/SIMETH/LIDO VISC 1:1 30 ML BOTTLE PO STA (18:53)
[2021-10-25] MEDS ORDERED: ALBUTEROL 2.5 MG/3 ML NEB RESP TX PRN (19:00)
[2021-10-25] MEDS: PANTOPRAZOLE 40 MG TABLET PO SCH (19:48)
[2021-10-25] MEDS: carvediloL 3.125 MG TABLET PO SCH ×2 (19:48→21:58)
[2021-10-25] MEDS ORDERED: ACETAMINOPHEN 325 MG/10.15 ML UDCUP PO PRN (20:00)
[2021-10-25] MEDS ORDERED: ENOXAPARIN 40 MG/0.4 ML SYRINGE SUBCUT SCH (21:00)
[2021-10-25] MEDS: ENOXAPARIN 30 MG/0.3 ML SYRINGE SUBCUT SCH (21:53)
[2021-10-25] MEDS: CLOPIDOGREL 75 MG TABLET PO SCH (21:53)
[2021-10-25] MEDS: SIMVASTATIN 40 MG TABLET PO SCH (21:57)
[2021-10-26] MEDS: ALBUTEROL/IPRATROPIUM 3 ML NEB RESP TX SCH ×2 (02:25→07:00)
[2021-10-26 06:17] LABS: Eosinophils # 0.1 10*3/uL (0.0-0.87); Eosinophils % 1.7 % (0.00-10.9); Hematocrit 40.7 VOL% (35.7-47.0); Immature Granulocytes % 0.8 %; Immature Granulocytes Absolute 0.04 #; Lymphocytes # 2.1 10*3/uL (1.4-4.0); Mean Corpuscular HGB Conc 31.9 GM/DL (32-36); Mean Corpuscular Volume 79.6 FL (87-102); Mean Platelet Volume 10.2 FL (9.6-12.0); Monocytes # 0.5 10*3/uL (0.11-0.8); Monocytes % 9.4 % (1.7-12.7); Neutrophils % 45.1 % (38.7-73.9); Platelet Count 357 T/CUMM (130-400); Red Blood Count 5.11 MC/CUMM (3.8-5.5); Red Cell Distribution Width 19.7 % (9.3-17.3); White Blood Count 4.8 T/CUMM (4-12)
[2021-10-26 06:57] LABS: Albumin 3.2 G/DL (3.4-5.0); Bilirubin,Total 0.4 MG/DL (0.20-1.00); Calcium 8.7 MG/DL (8.5-10.1); Osmolality,Calculated 285.7 MOS/KG (273-304); Potassium 3.7 MMOL/L (3.5-5.1); Risk Ratio 3.33; Thyroid Stimulating Hormone 1.64 uIU/ml (0.358-3.74); Total Protein 7.2 G/DL (6.4-8.2)
[2021-10-26] MEDS: CLOPIDOGREL 75 MG TABLET PO SCH (09:18)
[2021-10-26] MEDS: NEBIVOLOL 10 MG TABLET PO SCH (09:19)
[2021-10-26] MEDS: PANTOPRAZOLE 40 MG TABLET PO SCH (09:19)
[2021-10-26] MEDS: ENOXAPARIN 30 MG/0.3 ML SYRINGE SUBCUT SCH ×2 (09:19→21:11)
[2021-10-26] MEDS: LOSARTAN/HCTZ 50-12.5 MG TABLET PO SCH (09:19)
[2021-10-26] MEDS: carvediloL 3.125 MG TABLET PO SCH ×2 (09:19→21:11)
[2021-10-26] MEDS: NICOTINE 21 MG/24 HR PATCH TRANSDERM SCH (09:19)
[2021-10-26] MEDS: ASPIRIN 325 MG TABLET PO SCH (09:44)
[2021-10-26] MEDS: NON-FORMULARY MEDICATION (Fluticasone-Umeclidin-Vilanter [Trelegy Ellipta] 100-62.5-25 mcg INH SCH (14:48)
[2021-10-26] MEDS: SIMVASTATIN 40 MG TABLET PO SCH (21:11)
[2021-10-27 06:43] LABS: Basophils % 0.2 % (0.0-0.8); Eosinophils # 0.1 10*3/uL (0.0-0.87); Eosinophils % 2.2 % (0.00-10.9); Hematocrit 38.6 VOL% (35.7-47.0); Immature Granulocytes % 0.5 %; Immature Granulocytes Absolute 0.03 #; Lymphocytes # 2.5 10*3/uL (1.4-4.0); Lymphocytes % 38.9 % (21.3-54.2); Mean Corpuscular HGB Conc 31.1 GM/DL (32-36); Mean Corpuscular Volume 80.4 FL (87-102); Mean Platelet Volume 9.7 FL (9.6-12.0); Monocytes # 0.6 10*3/uL (0.11-0.8); Neutrophils % 49.2 % (38.7-73.9); Platelet Count 337 T/CUMM (130-400); Red Cell Distribution Width 19.7 % (9.3-17.3); White Blood Count 6.4 T/CUMM (4-12)
[2021-10-27 07:06] LABS: Alanine Aminotransferase 15 U/L (13-56); Alkaline Phosphatase 54 U/L (45-117); Aspartate Amino Transferase 11 U/L (0-37); Bilirubin,Total < 0.39 MG/DL (0.20-1.00); Blood Urea Nitrogen 58 MG/DL (7-18); Calcium 8.4 MG/DL (8.5-10.1); Carbon Dioxide 31 MMOL/L (21-32); Chloride 100 MMOL/L (98-107); Glucose 102 MG/DL (74-106); Osmolality,Calculated 294.4 MOS/KG (273-304); Potassium 3.5 MMOL/L (3.5-5.1); Sodium 140 MMOL/L (136-145)
[2021-10-27] MEDS: CLOPIDOGREL 75 MG TABLET PO SCH (09:19)
[2021-10-27] MEDS: LOSARTAN/HCTZ 50-12.5 MG TABLET PO SCH (09:19)
[2021-10-27] MEDS: NICOTINE 21 MG/24 HR PATCH TRANSDERM SCH (09:19)
[2021-10-27] MEDS: ASPIRIN 325 MG TABLET PO SCH (09:19)
[2021-10-27] MEDS: PANTOPRAZOLE 40 MG TABLET PO SCH (09:19)
[2021-10-27] MEDS: carvediloL 3.125 MG TABLET PO SCH ×2 (09:19→20:54)
[2021-10-27] MEDS: NEBIVOLOL 10 MG TABLET PO SCH (09:19)
[2021-10-27] MEDS: ENOXAPARIN 30 MG/0.3 ML SYRINGE SUBCUT SCH ×2 (09:20→20:54)
[2021-10-27] MEDS: NON-FORMULARY MEDICATION (Fluticasone-Umeclidin-Vilanter [Trelegy Ellipta] 100-62.5-25 mcg INH SCH (09:22)
[2021-10-27] MEDS: LACTATED RINGERS 1,000 ML IV SCH ×2 (11:45→19:35)
[2021-10-27] MEDS: SIMVASTATIN 40 MG TABLET PO SCH (20:54)
[2021-10-28 05:03] LABS: Basophils % 0.2 % (0.0-0.8); Eosinophils # 0.2 10*3/uL (0.0-0.87); Eosinophils % 2.6 % (0.00-10.9); Hematocrit 35.2 VOL% (35.7-47.0); Hemoglobin 10.5 GM/DL (12.0-16.0); Immature Granulocytes % 0.5 %; Immature Granulocytes Absolute 0.03 #; Lymphocytes # 2.1 10*3/uL (1.4-4.0); Lymphocytes % 37.5 % (21.3-54.2); Mean Corpuscular HGB Conc 29.8 GM/DL (32-36); Mean Corpuscular Volume 82.2 FL (87-102); Mean Platelet Volume 10.5 FL (9.6-12.0); Monocytes # 0.5 10*3/uL (0.11-0.8); Monocytes % 9.3 % (1.7-12.7); Neutrophils % 49.9 % (38.7-73.9); Platelet Count 292 T/CUMM (130-400); Red Blood Count 4.28 MC/CUMM (3.8-5.5); Red Cell Distribution Width 19.5 % (9.3-17.3); White Blood Count 5.7 T/CUMM (4-12)
[2021-10-28 05:27] LABS: Alanine Aminotransferase 18 U/L (13-56); Albumin 2.9 G/DL (3.4-5.0); Alkaline Phosphatase 49 U/L (45-117); Aspartate Amino Transferase 8 U/L (0-37); Bilirubin,Total < 0.39 MG/DL (0.20-1.00); Blood Urea Nitrogen 49 MG/DL (7-18); Calcium 8.7 MG/DL (8.5-10.1); Carbon Dioxide 33 MMOL/L (21-32); Chloride 101 MMOL/L (98-107); Glucose 88 MG/DL (74-106); Osmolality,Calculated 292.3 MOS/KG (273-304); Potassium 3.7 MMOL/L (3.5-5.1); Sodium 141 MMOL/L (136-145); Total Protein 6.5 G/DL (6.4-8.2)
[2021-10-28 07:48] VITALS: BP 152/53
[2021-10-28] MEDS: NICOTINE 21 MG/24 HR PATCH TRANSDERM SCH (09:19)
[2021-10-28] MEDS: carvediloL 3.125 MG TABLET PO SCH (09:19)
[2021-10-28] MEDS: PANTOPRAZOLE 40 MG TABLET PO SCH (09:19)
[2021-10-28] MEDS: ENOXAPARIN 30 MG/0.3 ML SYRINGE SUBCUT SCH (09:20)
[2021-10-28] MEDS: NEBIVOLOL 10 MG TABLET PO SCH (09:20)
[2021-10-28] MEDS: CLOPIDOGREL 75 MG TABLET PO SCH (09:20)
[2021-10-28] MEDS: ASPIRIN 325 MG TABLET PO SCH (10:37)
[2021-10-28] MEDS: NON-FORMULARY MEDICATION (Fluticasone-Umeclidin-Vilanter [Trelegy Ellipta] 100-62.5-25 mcg INH SCH (10:38)
[2021-10-28] MEDS ORDERED: ASPIRIN CHEW 81 MG TABLET PO ONE (10:42)
== END 2021-10-28 11:45 | disposition home health service (06) | DRG 305 ==
LOC: N.ED 10:55 → N.EDINP 16:24 → INTOOBSV 16:24 → SUATTDRO 16:24 → N.EDINP 18:45 → N.TELEN 18:53
PROVIDERS: ADMIT Internal Medicine; ATTEND Internal Medicine Geriatric Medicine